=== PATIENT | male | born 1945 | race African-American/Black ===

== ENCOUNTER 2018-11-24 08:35 | Emergency (ER) | payer SELFPAY ==
[2018-11-24 08:43] VITALS: RESP 18; TEMP 98.9
--- NOTE | 2018-11-24 09:11 | ED ---
General Adult HPI - General Chief complaint: Recheck/Abnormal Lab/Rx Stated complaint: Dementia Time Seen by Provider: 11/24/18 08:53 Source: patient, police, RN notes reviewed, old records reviewed Mode of arrival: ambulatory Limitations: no limitations - History of Present Illness Initial comments: 73-year-old male patient with history of dementia is brought into emergency department by police. Police report states that patient left his home in [place] area last night driving the family vehicle. The reportedly ran out of gas, was picked up by police walking the gas station. Patient denies any complaints at this time. Denies any chest pain shortness breath abdominal pain nausea vomiting diarrhea, headache, change in vision. Systemic: Pt denies fatigue, fever/chills, rash. Pt denies weakness, night sweats, weight loss. Neuro: Pt denies headache, visual disturbances, syncope or pre-syncope. HEENT: Pt denies ocular discharge or irritation, otalgia, rhinorrhea, pharyngitis or notable lymphadenopathy. Cardiopulmonary: Pt denies chest pain, SOB, heart palpitations, dyspnea on exertion. Abdominal/GI: Pt denies abdominal pain, n/v/d. : Pt denies dysuria, burning w/ urination, frequency/urgency. Denies new onset urinary or bowel incontinence. MSK: Pt denies myalgia, loss of strength or function in extremities. Neuro: Pt denies new onset weakness, paresthesias. - Related Data Home Medications Medication Instructions Recorded Confirmed Acetaminophen Tab [Tylenol Tab] 650 mg PO Q4H PRN 11/24/18 11/24/18 Allergies Allergy/AdvReac Type Severity Reaction Status Date / Time codeine Allergy Unknown Verified 11/24/18 08:54 Review of Systems ROS Statement: Those systems with pertinent positive or pertinent negative responses have been documented in the HPI. ROS Other: All systems not noted in ROS Statement are negative. Past Medical History Past Medical History: Dementia, Hypertension History of Any Multi-Drug Resistant Organisms: None Reported Past Surgical History: Appendectomy Past Psychological History: No Psychological Hx Reported Smoking Status: Current every day smoker Past Alcohol Use History: Occasional Past Drug Use History: Marijuana General Exam - General Exam Comments Initial Comments: Constitutional: NAD, AOX3, Pt has pleasant affect. HEENT: NC/AT, trachea midline, neck supple, no lymphadenopathy. Posterior pharynx non erythematous, without exudates. External ears appear normal, without discharge. Mucous membranes moist. Eyes PERRLA, EOM intact. There is no scleral icterus. No pallor noted. Cardiopulmonary: RRR, no murmurs, rubs or gallops, no JVD noted. Lungs CTAB in anterior and posterior durbin. No peripheral edema. Abdominal exam: Abdomen soft and non-distended. Abdomen non-tender to palpation in all 4 quadrants. Bowel sounds active in LLQ. No hepatosplenomegaly. No ecchymosis Neuro: CN II-XII grossly intact. No nuchal rigidity. No raccon eyes, no pace sign, no hemotympanum. No cervical spinal tenderness. NIH 0. MSK: No posterior calf tenderness bilaterally, homans sign negative bilaterally. Posterior tibialis and radial pulse +2 bilaterally. Sensation intact in upper and lower extremities. Full active ROM in upper and lower extremities, 5/5 stregnth. Limitations: no limitations Course Vital Signs 11/24/18 08:39 Temperature 98.9 F Pulse Rate 95 Respiratory 18 Rate Blood Pressure 118/69 O2 Sat by Pulse 100 Oximetry Medical Decision Making - Medical Decision Making 73-year-old male patient with history of dementia is brought into emergency department by police. Police report states that patient left his home in [place] area last night driving the family vehicle. The reportedly ran out of gas, was picked up by police walking the gas station. Patient denies any complaints at this time. Denies any chest pain shortness breath abdominal pain nausea vomiting diarrhea, headache, change in vision. Patient will signs stable, afebrile. Physical exam did not acute pathology. 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 Patient discharge, follow up with primary care provider. Case discussed with Dr. Real. Disposition Clinical Impression: Dementia Disposition: HOME SELF-CARE Condition: Stable Additional Instructions: Patient to adhere to previously discussed treatment plan and will take medication(s) as directed. Patient to follow up with PCP in 1-2 days. Patient to return to ED if symptoms do not improve. Return to ER if condition worsens in any way. Is patient prescribed a controlled substance at d/c from ED?: No Referrals: None,Stated [Primary Care Provider] - 1-2 days
[2018-11-24 12:20] VITALS: BP 123/57; PULSE 87
== END 2018-11-24 12:19 | disposition home or self-care (01) ==
LOC: EC 08:35
DX: F03.90 Unspecified dementia, unspecified severity, without behavioral disturbance, psychotic disturbance, mood disturbance, and anxiety (principal); F17.200 Nicotine dependence, unspecified, uncomplicated; Z88.5 Allergy status to narcotic agent
CPT/HCPCS: 99284